=== PATIENT | male | born 1960 | race Caucasian/White ===

== ENCOUNTER 2023-06-04 00:13 | Inpatient (IN) | payer BC ==
[2023-06-04] VITALS (13 sets, daily range): BP systolic 101–151; BP diastolic 54–87; PULSE 76–96; RESP 15–23; TEMP 97.1–98.6; O2SAT 93–97
[~2023-06-04] VITALS: Ht 172.7 cm; Wt 132.4 kg
[2023-06-04 00:50] LABS: BASOPHILS % (AUTO) 0.4 % (0-1); EOSINOPHILS # (AUTO) 0.1 X10'3 (0-0.9); EOSINOPHILS % (AUTO) 0.8 % (0-6); HEMATOCRIT 42.8 % (42.0-52.0); HEMOGLOBIN 14.3 g/dl (14.0-17.9); LYMPHOCYTES # (AUTO) 2.2 X10'3 (1.1-4.8); LYMPHOCYTES % (AUTO) 23.9 % (21-51); MEAN CORPUSCULAR HEMOGLOBIN 28.8 PG (27.0-31.0); MEAN CORPUSCULAR HGB CONC 33.4 g/dL (33.0-36.5); MEAN CORPUSCULAR VOLUME 86.1 FL (78-98); MEAN PLATELET VOLUME 7.1 FL (7.4-10.4); MONOCYTES # (AUTO) 0.6 X10'3 (0-0.9); MONOCYTES % (AUTO) 6.8 % (2-12); NEUTROPHILS # (AUTO) 6.4 X10'3 (1.8-7.7); NEUTROPHILS % (AUTO) 68.1 % (42-75); PLATELET COUNT 345 X10'3 (140-440); RED BLOOD COUNT 4.97 X10'6 (4.70-6.10); RED CELL DISTRIBUTION WIDTH 15.2 % (11.5-14.5); WHITE BLOOD COUNT 9.3 X10'3 (4.5-11.0)
[2023-06-04 00:58] LABS: APTT 50 SECONDS (22-32)
[2023-06-04 01:09] LABS: ANION GAP 11 (8-16); BLOOD UREA NITROGEN 17 MG/DL (7-18); BUN/CREATININE RATIO 20.7 (10.0-20.0); CALCIUM 8.4 MG/DL (8.5-10.1); CHLORIDE 104 MMOL/L (99-107); CREATININE 0.82 MG/DL (0.60-1.10); GLUCOSE 118 MG/DL (70-104); POTASSIUM 3.9 MMOL/L (3.5-5.1); PRO BRAIN NATRIURETIC PEPTIDE 105 PG/ML (0-125); SODIUM 141 MMOL/L (135-145); TOTAL CARBON DIOXIDE 26.5 MMOL/L (24-32); eCRCL 89 ML/MIN; eGFR > 90 ML/MIN
[2023-06-04] MEDS: MESSAGE TO NURSING IV ONE ×2 (01:20→05:22)
[2023-06-04 01:21] LABS: PROTHROMBIN TIME 10.5 SECONDS (9.0-12.0)
[2023-06-04] MEDS: heparin 25,000 UNIT/250ml bag 250 ML IV PRN (01:22)
[2023-06-04] MEDS ORDERED: metoprolol tartrate 50mg tablet PO ONE (01:25)
[2023-06-04] MEDS: acetaminophen 325mg tablet PO ONE (01:34)
[2023-06-04] MEDS: aspirin 325mg tablet PO ONE (01:34)
[2023-06-04] MEDS: metoprolol tartrate 25mg tablet PO ONE (01:34)
[2023-06-04] MEDS ORDERED: acetaminophen 325mg tablet PO PRN (04:15)
[2023-06-04] MEDS ORDERED: potassium Cl 40MEQ/1/2NS 520ml 520 ML IV PRN (04:15)
[2023-06-04] MEDS ORDERED: magnesium Cl slow-release 64mg tablet PO PRN (04:15)
[2023-06-04] MEDS ORDERED: magnesium 2GM in 50ml NS 50 ML IV PRN (04:15)
[2023-06-04] MEDS ORDERED: potassium Cl 20 mEq SR tablet PO PRN ×2 (04:15)
[2023-06-04] MEDS ORDERED: mag hydrox/Alum hydrox/simeth 30ml oral suspension PO PRN (04:15)
[2023-06-04] MEDS ORDERED: magnesium 4gm in 100ml NS 100 ML IV PRN (04:15)
[2023-06-04] MEDS ORDERED: magnesium hydroxide 30ml (MOM) UD suspension PO PRN (04:15)
[2023-06-04] MEDS ORDERED: morphine 2 MG/ML inj. syringe IV PRN (04:15)
[2023-06-04 04:46] LABS: APTT 41 SECONDS (22-32)
[2023-06-04 04:55] LABS: CHOLESTEROL 191 MG/DL (0-200); HDL CHOLESTEROL 38 MG/DL (35-60); LDL CHOLESTEROL 136 MG/DL (50-100); MAGNESIUM 2.1 MG/DL (1.5-2.4); POTASSIUM 4.1 MMOL/L (3.5-5.1); PRO BRAIN NATRIURETIC PEPTIDE 204 PG/ML (0-125); TRIGLYCERIDES 125 MG/DL (20-135)
[2023-06-04] MEDS: heparin 10,000 units/1 ML INJ IV PRN (05:16)
[2023-06-04 05:20] LABS: HEMOGLOBIN A1C 5.9 % (4.5-6.2)
[2023-06-04] MEDS: pantoprazole 40mg Tablet.DR PO SCH (07:30)
[2023-06-04] MEDS: K and/or MAG REPLACEMENT MC SCH (08:00)
[2023-06-04] MEDS: atorvastatin 20mg tablet PO SCH (08:00)
[2023-06-04] MEDS: metoprolol tartrate 50mg tablet PO SCH (08:00)
[2023-06-04] MEDS: aspirin 81mg tab.chew PO SCH (08:30)
[2023-06-04] MEDS: normal saline 1000ml 1,000 ML IV SCH (09:45)
[2023-06-04] MEDS ORDERED: LIDOcaine 1% (10mg/ml) 2ml vial ONE (09:49)
[2023-06-04] MEDS ORDERED: verapamil 2.5 mg/ml inj IV ONE (09:49)
[2023-06-04] MEDS ORDERED: fentaNYL/PF 50MCG/1 ML 2ML syringe ONE (09:50)
[2023-06-04] MEDS ORDERED: iohexol 350 MG/ML 50ML vial IV ONE ×2 (09:50→11:57)
[2023-06-04] MEDS ORDERED: heparin 1,000unit/ml 10ml vial 10 ML ONE (09:50)
[2023-06-04] MEDS ORDERED: nitroGLYCERIN 500mcg/5mL D5W 5 ML IV ONE ×2 (09:50→11:19)
[2023-06-04] MEDS ORDERED: iohexol 350MG/ML 100ml bottle IV ONE ×3 (09:50→10:55)
[2023-06-04] MEDS ORDERED: midazolam 1 mg/ML 2ml injection ONE (09:50)
[2023-06-04] MEDS ORDERED: heparin 1,000 UNITS/NS 500ml 500 ML ONE (11:52)
[2023-06-04] MEDS ORDERED: clopidogrel 300mg tablet ONE (12:03)
[2023-06-04] MEDS: ondansetron/PF 4mg/2ml inj IV PRN (17:36)
[2023-06-04] MEDS ORDERED: NO HOME MEDS (18:00)
[2023-06-04] MEDS: HYDROcodone/acetaminophen 5mg/325mg tablet PO PRN (19:07)
[2023-06-05 06:51] LABS: ALBUMIN 2.7 G/DL (3.4-5.0); ANION GAP 9 (8-16); BLOOD UREA NITROGEN 13 MG/DL (7-18); BUN/CREATININE RATIO 16.5 (10.0-20.0); CALCIUM 8.4 MG/DL (8.5-10.1); CHLORIDE 105 MMOL/L (99-107); CREATININE 0.79 MG/DL (0.60-1.10); GLUCOSE 104 MG/DL (70-104); MAGNESIUM 2.1 MG/DL (1.5-2.4); POTASSIUM 4.1 MMOL/L (3.5-5.1); SODIUM 140 MMOL/L (135-145); eCRCL 93 ML/MIN; eGFR > 90 ML/MIN
[2023-06-05 06:54] LABS: BASOPHILS # (AUTO) 0.1 X10'3 (0-0.2); BASOPHILS % (AUTO) 0.6 % (0-1); EOSINOPHILS # (AUTO) 0.1 X10'3 (0-0.9); EOSINOPHILS % (AUTO) 1.6 % (0-6); HEMATOCRIT 39.3 % (42.0-52.0); HEMOGLOBIN 13.3 g/dl (14.0-17.9); LYMPHOCYTES # (AUTO) 1.7 X10'3 (1.1-4.8); LYMPHOCYTES % (AUTO) 19.2 % (21-51); MEAN CORPUSCULAR HGB CONC 33.9 g/dL (33.0-36.5); MEAN CORPUSCULAR VOLUME 85.7 FL (78-98); MEAN PLATELET VOLUME 7.5 FL (7.4-10.4); MONOCYTES # (AUTO) 0.7 X10'3 (0-0.9); MONOCYTES % (AUTO) 8.2 % (2-12); NEUTROPHILS # (AUTO) 6.1 X10'3 (1.8-7.7); NEUTROPHILS % (AUTO) 70.4 % (42-75); PLATELET COUNT 309 X10'3 (140-440); RED BLOOD COUNT 4.58 X10'6 (4.70-6.10); RED CELL DISTRIBUTION WIDTH 15.3 % (11.5-14.5); WHITE BLOOD COUNT 8.7 X10'3 (4.5-11.0)
[2023-06-05 07:30] VITALS: BP 116/57; PULSE 78; RESP 11; TEMP 98.1; O2SAT 94
[2023-06-05] MEDS ORDERED: CLOP75TA34 PO (08:23)
[2023-06-05] MEDS ORDERED: METO25TA6 PO (08:23)
[2023-06-05] MEDS ORDERED: ASPI81TA53 PO (08:23)
[2023-06-05] MEDS ORDERED: ATOR-2 PO (08:23)
[2023-06-05 08:48] VITALS: BP_SYST 116
[2023-06-05] MEDS: clopidogrel 75mg tablet PO SCH (08:48)
[2023-06-05] MEDS: metoprolol tartrate 25mg tablet PO SCH (08:48)
== END 2023-06-05 12:05 | disposition home or self-care (01) | DRG 322 ==
LOC: ER 00:14 → ED HOLD 04:18 → PCU 3S 09:08
PROVIDERS: ADMIT Internal Medicine; ATTEND Family Medicine
PROC: 4A023N7 Measurement of Cardiac Sampling and Pressure, Left Heart, Percutaneous Approach (ICD-10-PCS; principal; 2023-06-04)
PROC: 0270356 Dilation of Coronary Artery, One Artery, Bifurcation, with Two Drug-eluting Intraluminal Devices, Percutaneous Approach (ICD-10-PCS; 2023-06-04)
PROC: B2111ZZ Fluoroscopy of Multiple Coronary Arteries using Low Osmolar Contrast (ICD-10-PCS; 2023-06-04)
PROC: B2151ZZ Fluoroscopy of Left Heart using Low Osmolar Contrast (ICD-10-PCS; 2023-06-04)
PROC: B3101ZZ Fluoroscopy of Thoracic Aorta using Low Osmolar Contrast (ICD-10-PCS; 2023-06-04)
DX: I21.4 Non-ST elevation (NSTEMI) myocardial infarction (principal); Z68.41 Body mass index [BMI] 40.0-44.9, adult; G47.33 Obstructive sleep apnea (adult) (pediatric); E66.9 Obesity, unspecified; I25.10 Atherosclerotic heart disease of native coronary artery without angina pectoris; I10 Essential (primary) hypertension; E78.00 Pure hypercholesterolemia, unspecified; R73.03 Prediabetes; Z90.49 Acquired absence of other specified parts of digestive tract; Z79.82 Long term (current) use of aspirin; Z79.899 Other long term (current) drug therapy; Z79.02 Long term (current) use of antithrombotics/antiplatelets
CPT/HCPCS: 93306; 93458; 93567; C9600; 36415; 71045; 76937; 80048; 80061; 83036; 83735; 83880; 84132; 84484; 85025; 85347; 85610; 85730; 87081; 93005; 99152; 99153; 99285; A6258; C1725; C1751; C1769; C1874; C1894; G0378; J1644; J2250; J2405; J3010; J3490; J7030; Q9967